=== PATIENT | male | born 1990 | race African-American/Black ===

== ENCOUNTER 2017-03-08 18:45 | Emergency (ER) | payer SELFPAY ==
[2017-03-08 19:35] LABS: INFLUENZA A PATIENT NEGATIVE (NEGATIVE); INFLUENZA B PATIENT NEGATIVE (NEGATIVE); OBC FLU VALID
[2017-03-09 07:11] LABS: NEGATIVE OBC STREP NEG; POSITIVE OBC STREP POS
== END 2017-03-08 20:53 | disposition home or self-care (01) ==
LOC: ER 18:45
DX: R05 Cough (principal); R11.2 Nausea with vomiting, unspecified; R68.83 Chills (without fever); M79.1 Myalgia; F41.9 Anxiety disorder, unspecified; F32.9 Major depressive disorder, single episode, unspecified; G47.00 Insomnia, unspecified; Z88.6 Allergy status to analgesic agent
CPT/HCPCS: 87804; 87804-59; 87880; 99284